=== PATIENT | female | born 1935 | race Caucasian/White ===

== ENCOUNTER → 2016-11-30 | Outpatient (CLI) | payer MEDICARE, OTHER ==
[~2016-11-30] MED LIST: ALPR0.5T PO; ASPI-933 PO; CALC-80 PO; CALC-9 PO; CIPR-226 PO; CIPR250S2 PO; CLN.1T PO; CLON1TAB18 PO; CLOP75TA PO; CLOP75TA28 PO; CPR500T PO; CRAN200C PO; DOXY100C2 PO; FOLI0.4T2 PO; FOLI1TAB24 PO; HYDR12.56 PO; LACT1CAP62 PO; LISI40TA PO; METH2.5T PO; METH5TAB PO; METO100T5 PO; METO50TA7 PO; MTP100TCR PO; MTR250T PO; MTX2.5T PO; MULT-305 PO; MULT-974 PO; OSLT75C PO; SIMV40TA4 PO; SMV20T PO; TERI202.4P SQ; VALS1TAB78 PO
--- OUTSIDE RECORDS SUMMARY | 2016-11-30 08:55 | XMS REPORT | Continuity of Care Document ---
Author Author [facility] Organization [facility] Address Unknown Phone Unavailable Care Team Providers Care Digital Print Operator Name Role Phone Ivon Harvey PCP [phone] Source Comments Some departments are not documenting in the electronic medical record. If you do not see the information that you expected, contact Release of Information in the Health Information Management department at [phone] for further assistance in locating additional records.[facility] Active Allergies and Adverse Reactions Allergen Noted Date Severity Reactions Comments Codeine 06/16/2015 Medium HIVES Current Medications Prescription Sig. Disp. Refills Start End Date Status Date metoprolol XL (TOPROL XL) Take 50 mg by mouth Active 100 mg tablet daily. simvastatin (ZOCOR) 40 mg Take 40 mg by mouth every Active tablet 48 hours. methotrexate 10 mg tablet Take 10 mg by mouth every Active 7 days. valsartan/hydrochlorothia Take by mouth daily. Active zide (DIOVAN HCT) 320/12.5 mg tablet folic acid (FOLVITE) 1 mg Take 1 mg by mouth daily. Active tablet clopiDOGrel (PLAVIX) 75 Take 75 mg by mouth every Active mg tablet 48 hours. MULTIVITAMINS WITH Take by mouth. 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 06/16/2015 Social History Tobacco Use Types Packs/Day Years Used Date Never Smoker Smokeless Tobacco: Never Used Last Filed Vital Signs Vital Sign Reading Time Taken Blood Pressure 199/105 06/21/2016 12:42 PM CDT Pulse 62 06/21/2016 12:42 PM CDT Temperature - - Respiratory Rate - - Height 1.6 m (5' 2.99") 06/21/2016 12:42 PM CDT Weight 68.04 kg (150 lb) 06/21/2016 12:42 PM CDT Body Mass Index 26.58 06/21/2016 12:42 PM CDT Oxygen Saturation - - Plan of Care Date Type Specialty Providers Description 12/26/2016 Appointment Ophthalmology Markell Lowery MD [address] [place] [address] [phone] (Fax) Health Maintenance Due Date Last Done Comments Physical (Comprehensive) 1942 Exam Pertussis Vaccine 1944 Tetanus Vaccine 1950 Shingles Vaccine 1993 Osteoporosis Screening 1998 Prevnar/Pneumovax (#1) 1998 Influenza Vaccine 06/22/2016 Results from Last 3 Months Not on file
--- NOTE | 2016-12-01 12:23 | Diagnostic Imaging Report ---
EXAM: Ultrasound of the abdominal aorta. INDICATION: AAA. COMPARISON: 08/31/16. FINDINGS: There is a distal abdominal aortic aneurysm with caliber measuring 3.1 x 3.7 cm. This is similar to the previous study. The right common iliac artery is ectatic at 1.6 cm. The left pulmonary artery is obscured by bowel gas. IMPRESSION: There is a 3.7 cm abdominal aortic aneurysm. Dictated by: Dictated on workstation # [id number]
== END ==
LOC: RAD 08:51
PROVIDERS: ATTEND Nurse Practitioner Family
DX: I71.4 Abdominal aortic aneurysm, without rupture (principal)
CPT/HCPCS: 76775

== ENCOUNTER → 2017-07-05 | Outpatient (CLI) | payer MEDICARE, OTHER ==
--- NOTE | 2017-07-05 09:32 | Diagnostic Imaging Report ---
Ultrasound of the aorta. INDICATION: Abdominal aortic aneurysm. COMPARISON: 12/01/2016. FINDINGS: The proximal aorta diameter is 2.0 cm and at midportion is 2.2 cm with prominent atherosclerotic plaque seen. The distal abdominal aorta caliber is up to 4.2 cm in size. This appears to be increased when compared to prior measurement of 3.7 cm. IMPRESSION: Suggestion of increase in size of the distal abdominal aortic aneurysm up to 4.2 cm compared to 3.7 cm on the previous exam performed seven months ago. Consider CTA or CT without contrast if there is renal dysfunction for more accurate measurements. Report was stat faxed to office of Dr. Tiara Miller @ 9:31 AM/wendy. Dictated by: Dictated on workstation # [id number]
== END ==
LOC: RAD 07:35
PROVIDERS: ATTEND Internal Medicine Cardiovascular Disease
DX: I71.4 Abdominal aortic aneurysm, without rupture (principal)
CPT/HCPCS: 76775

== ENCOUNTER → 2017-07-10 | Outpatient (CLI) | payer MEDICARE, OTHER ==
[~2017-07-10] MED LIST changes: +IOHEXOL 350 MG/ML 150 ML (OMNIPAQUE 350) VIAL IV ONE; +NS 100 ML (IVPB) BAG IV ONE
[2017-07-10 08:06] LABS: CALCIUM 9.8 MG/DL (8.5-10.1); CREATININE SERUM 0.96 MG/DL (0.60-1.30); POTASSIUM 3.8 MMOL/L (3.6-5.0)
--- NOTE | 2017-07-10 15:17 | Diagnostic Imaging Report ---
EXAMINATION: CT angiogram of the abdomen and pelvis with bilateral lower extremity runoff. INDICATION: Abdominal aortic aneurysm followup. FINDINGS: Soft tissue findings in the abdomen and pelvis demonstrate no significant consolidation in the lung bases. The liver, gallbladder, spleen, pancreas and adrenals appear unremarkable. The kidneys have symmetric contrast enhancement without hydronephrosis. There is diverticulosis with no diverticulitis. No significant free fluid or fluid collection in the abdomen or pelvis. CTA ABDOMEN AND PELVIS: There is an infrarenal abdominal aortic aneurysm with maximum caliber of 4.1 cm compared to 3.[address] of 11/27/2014. There is prominent atherosclerotic plaque seen with no high-grade stenosis in the aorta however. The celiac trunk demonstrates proximal high-grade stenosis. The SMA is patent. The renal arteries demonstrate atherosclerotic plaque with mild stenosis proximally on the right side and moderate stenosis on the left. The [place] origin appears to be occluded. In the pelvis, there is mild stenosis at the origin of the right common iliac artery. Diffuse mild to moderate disease in the common iliac and internal iliac arteries on the right are seen. Mild to moderate disease in the proximal aspect of the right external iliac artery is noted. Diffuse mild to moderate disease in the left common iliac artery is noted. There is suggestion of occlusion at the origin of the left internal iliac artery. The left external iliac artery appears patent. RIGHT LOWER EXTREMITY CTA: There is mild disease in the right common femoral artery. The profunda femoris is patent. The right SFA demonstrate mild to moderate disease from a noncalcified plaque in the proximal to mid right SFA and mild disease in the distal right SFA. The right popliteal artery mid section demonstrate significant artifacts from knee replacement obscuring this artery. The proximal and distal ends of the artery however appear patent. The anterior tibial artery appears patent to the foot. The posterior tibial artery is occluded proximally. The peroneal artery is patent to the ankle with collaterals reconstituting the posterior tibial artery in the foot. LEFT LOWER EXTREMITY CTA: There is mild disease in the left BACTERIOLOGY RESEARCH ASSISTANT. The profunda femoris artery is patent. The SFA demonstrate mild disease. The popliteal artery proximal and distal segments are patent. The mid segment is obscured by beam hardening artifacts from knee replacement. The anterior tibial artery is patent to the foot. The tibioperoneal trunk demonstrate distal moderate stenosis. The posterior tibial artery is small in caliber but appears patent to the foot. The peroneal artery is patent to the ankle. IMPRESSION: 1. A 4.1 cm infrarenal AAA increased in caliber from 3.5 cm on 11/27/2014 exam. 2. Generally mild disease in the aortoiliac and femoropopliteal segments bilaterally. The mid popliteal artery is obscured by beam hardening artifacts on both sides. 3. 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 Dictated by: Dictated on workstation # [id number]
== END ==
LOC: RAD 07:10
PROVIDERS: ATTEND Nurse Practitioner Family
DX: I71.4 Abdominal aortic aneurysm, without rupture (principal); I70.92 Chronic total occlusion of artery of the extremities
CPT/HCPCS: 36415; 75635; 80048

== ENCOUNTER 2018-06-20 06:33 | Emergency (ER) | payer MEDICARE, OTHER ==
[~2018-06-20] VITALS: Ht 162.6 cm; Wt 70.5 kg
[~2018-06-20 06:33] MED LIST changes: -IOHEXOL 350 MG/ML 150 ML (OMNIPAQUE 350) VIAL IV ONE; -NS 100 ML (IVPB) BAG IV ONE
[2018-06-20] MEDS ORDERED: NF-VAL40T PO (06:47)
[2018-06-20 07:04] LABS: BASOPHILS % (AUTO) 0 % (0-10); EOSINOPHILS # (AUTO) 0.3 10^3/uL (0.0-0.3); EOSINOPHILS % (AUTO) 3 % (0-10); HEMATOCRIT 37 % (35-52); HEMOGLOBIN 12.8 G/DL (11.5-16.0); LYMPHOCYTES # (AUTO) 1.4 X 10^3 (1.0-4.0); LYMPHOCYTES % (AUTO) 11 % (12-44); MEAN CORPUSCULAR HEMOGLOBIN 33 PG (25-34); MEAN CORPUSCULAR HGB CONC 35 G/DL (32-36); MEAN CORPUSCULAR VOLUME 95 FL (80-99); MEAN PLATELET VOLUME 9.2 FL (7.4-10.4); MONOCYTES # (AUTO) 1.5 X 10^3 (0.0-1.0); MONOCYTES % (AUTO) 12 % (0-12); NEUTROPHILS # (AUTO) 8.7 X 10^3 (1.8-7.8); NEUTROPHILS % (AUTO) 74 % (42-75); PLATELET COUNT 298 10^3/uL (130-400); RED BLOOD COUNT 3.88 10^6/uL (4.35-5.85); RED CELL DISTRIBUTION WIDTH 14.9 % (10.0-14.5); WHITE BLOOD COUNT 11.8 10^3/uL (4.3-11.0)
--- NOTE | 2018-06-20 07:05 | ED Abdominal Pain ---
General Chief Complaint: Abdominal/GI Problems Stated Complaint: ABD PAIN Nursing Triage Note: lower abdominal pressure Sepsis Screen: No Definite Risk Source of Information: Patient, Family, Old Records Exam Limitations: No Limitations History of Present Illness Date Seen by Provider: Jun 20, 2018 Time Seen by Provider: 06:35 Initial Comments This 82-year-old woman presents to the emergency room with complaints of lower abdominal pressure and discomfort for couple of days. She states she hasn't felt well for maybe 3 or 4 days. She denies any nausea, vomiting, or diarrhea. She does sometimes have constipation. However, she had a normal bowel movement yesterday. She denies any fever. She also has an abdominal aortic aneurysm which she is concerned about. She is notably hypertensive on arrival. She took her blood pressure medications this morning before coming to the ER. She has tenderness in the left lower quadrant. Allergies and Home Medications Allergies Coded Allergies: codeine (Verified Allergy, Unknown, 10/29/07) Home Medications Aspirin 81 Mg Tablet.dr, 81 MG PO DAILY, (Reported) Calcium Carbonate/Vitamin D3 1 Each Tablet, 1 TAB PO DAILY, (Reported) Cephalexin 500 Mg Capsule, 500 MG PO QID Prescribed by: SAMUEL SHEEHAN on 06/20/18 0938 Clopidogrel Bisulfate 75 Mg Tablet, 75 MG PO EVERY OTHER DAY, (Reported) Methotrexate Sodium 2.5 Mg Tablet, 12.5 MG PO WED, (Reported) TAKES 5 (2.5MG) TABLETS Metoprolol Succinate 100 Mg Tab.sr.24h, 100 MG PO BID, (Reported) Multivitamin 1 Each Tablet, 1 TAB PO DAILY, (Reported) Simvastatin 40 Mg Tablet, 40 MG PO DAILY, (Reported) Valsartan 40 Mg Tab, Unknown Dose PO DAILY, (Reported) Valsartan/Hydrochlorothiazide 1 Each Tablet, 1 TAB PO DAILY, (Reported) Patient Home Medication List Home Medication List Reviewed: Yes Review of Systems Review of Systems Constitutional: no symptoms reported EENTM: No Symptoms Reported Respiratory: No Symptoms Reported Cardiovascular: See HPI Gastrointestinal: See HPI Genitourinary: No Symptoms Reported Musculoskeletal: no symptoms reported Skin: no symptoms reported Psychiatric/Neurological: No Symptoms Reported Endocrine: No Symptoms Reported Past Cxlinfd-Twtjmr-Clzdmw Hx Past Med/Social Hx: Reviewed and Corrections made Patient Social History Alcohol Use: Denies Use Recreational Drug Use: No Smoking Status: Former Smoker Former Smoker, Quit: Aug 02, 1986 2nd Hand Smoke Exposure: No Recent Foreign Travel: No Contact w/Someone Who Travel: No Recent Infectious Disease Expo: No Recent Hopitalizations: No Immunizations Up To Date Tetanus Booster (TDap): More than 5yrs PED Vaccines UTD: No Date of Pneumonia Vaccine: Aug 22, 2010 Seasonal Allergies Seasonal Allergies: No Past Medical History Surgeries: Yes (hysterectomy, BILAT knee replacement/STENT) Coronary Stent, Hysterectomy, Orthopedic, Vascular Surgery Respiratory: No Cardiac: Yes (CEA NOV 2010, STENT, CARODID CLEAN OUT) Aneurysm (abdominal aortic aneurysm), Coronary Artery Disease, High Cholesterol , Hypertension, Peripheral Vascular Neurological: Yes (guillain-graves syndrome ) TIA : No Reproductive Disorders: No Female Reproductive Disorders: Denies Sexually Transmitted Disease: No HIV/AIDS: No Genitourinary: No UTI-Chronic Gastrointestinal: Yes Diverticulosis Musculoskeletal: Yes (SYATICA) Arthritis, Rheumatoid Arthritis Endocrine: No Cataract Loss of Vision: Denies Hearing Impairment: Hard of Hearing Cancer: No Psychosocial: No Integumentary: No Blood Disorders: No Adverse Reaction/Blood Tranf: No Family Medical History Reviewed Nursing Family Hx Aortic aneurysm 17 FATHER Physical Exam Vital Signs Vital Signs - First Documented 06/20/18 06:40 Temp 98.5 Pulse 74 Resp 18 B/P (MAP) 203/100 (134) Pulse Ox 95 O2 Delivery Room Air Capillary Refill : Less Than 3 Seconds Height/Weight/BMI Height: 5'4" Weight: 155lbs. 8.0oz. 70.826075fh; 25.74 BMI Method:Stated General Appearance: WD/WN, no apparent distress HEENT: PERRL/EOMI, normal ENT inspection, other (mucous membranes moist) Neck: normal inspection Respiratory: lungs clear, normal breath sounds, no respiratory distress, no accessory muscle use Cardiovascular: regular rate, rhythm, no edema, no murmur Gastrointestinal: normal bowel sounds, non tender, soft Extremities: normal inspection, no pedal edema Neurologic/Psychiatric: reception centre manager II-XII nml as tested, no motor/sensory deficits, alert, normal mood/affect, oriented x 3 Skin: normal color, warm/dry Progress/Results/Core Measures Results/Orders Lab Results Laboratory Tests Test 06/20/18 06:55 06/20/18 07:34 Range/Units White Blood Count 11.8 H 4.3-11.0 10^3/uL Red Blood Count 3.88 L 4.35-5.85 10^6/uL Hemoglobin 12.8 11.5-16.0 G/DL Hematocrit 37 35-52 % Mean Corpuscular Volume 95 80-99 FL Mean Corpuscular Hemoglobin 33 25-34 PG Mean Corpuscular Hemoglobin Concent 35 32-36 G/DL Red Cell Distribution Width 14.9 H 10.0-14.5 % Platelet Count 298 130-400 10^3/uL Mean Platelet Volume 9.2 7.4-10.4 FL Neutrophils (%) (Auto) 74 42-75 % Lymphocytes (%) (Auto) 11 L 12-44 % Monocytes (%) (Auto) 12 0-12 % Eosinophils (%) (Auto) 3 0-10 % Basophils (%) (Auto) 0 0-10 % Neutrophils # (Auto) 8.7 H 1.8-7.8 X 10^3 Lymphocytes # (Auto) 1.4 1.0-4.0 X 10^3 Monocytes # (Auto) 1.5 H 0.0-1.0 X 10^3 Eosinophils # (Auto) 0.3 0.0-0.3 10^3/uL Basophils # (Auto) 0.0 0.0-0.1 10^3/uL Sodium Level 138 135-145 MMOL/L Potassium Level 3.9 3.6-5.0 MMOL/L Chloride Level 102 98-107 MMOL/L Carbon Dioxide Level 24 21-32 MMOL/L Anion Gap 12 5-14 MMOL/L Blood Urea Nitrogen 17 7-18 MG/DL Creatinine 1.05 0.60-1.30 MG/DL Estimat Glomerular Filtration Rate 50 BUN/Creatinine Ratio 16 Glucose Level 110 H 70-105 MG/DL Calcium Level 9.9 8.5-10.1 MG/DL Corrected Calcium 9.9 8.5-10.1 MG/DL Total Bilirubin 0.6 0.1-1.0 MG/DL Aspartate Amino Transf (AST/SGOT) 31 5-34 U/L Alanine Aminotransferase (ALT/SGPT) 18 0-55 U/L Alkaline Phosphatase 62 40-136 U/L C-Reactive Protein High Sensitivity 0.67 H 0.00-0.50 MG/DL Total Protein 7.0 6.4-8.2 GM/DL Albumin 4.0 3.2-4.5 GM/DL Lipase 36 8-78 U/L Urine Color YELLOW Urine Clarity CLEAR Urine pH 7 5-9 Urine Specific [place] 1.005 L 1.016-1.022 Urine Protein NEGATIVE NEGATIVE Urine Glucose (UA) NEGATIVE NEGATIVE Urine Ketones NEGATIVE NEGATIVE Urine Nitrite NEGATIVE NEGATIVE Urine Bilirubin NEGATIVE NEGATIVE Urine Urobilinogen NORMAL NORMAL MG/DL Urine Leukocyte Esterase 1+ H NEGATIVE Urine RBC (Auto) NEGATIVE NEGATIVE Urine RBC NONE /HPF Urine WBC 5-10 H /HPF Urine Squamous Epithelial Cells 2-5 /HPF Urine Crystals NONE /LPF Urine Bacteria FEW H /HPF Urine Casts NONE /LPF Urine Mucus NEGATIVE /LPF Urine Culture Indicated YES Micro Results Microbiology 06/20/18 Urine Culture - Preliminary, Resulted Sent To [facility] My Orders Orders - SAMUEL MORE MD Cbc With Automated Diff (06/20/18 06:36) Comprehensive Metabolic Panel (06/20/18 06:36) Lipase (06/20/18 06:36) Ua Culture If Indicated (06/20/18 06:36) Saline Lock/Iv-Start (06/20/18 06:36) Hs C Reactive Protein (06/20/18 06:54) Ct Angio Abdomen/Pelv W (06/20/18 07:29) Labetalol Injection (Normodyne Injection (06/20/18 07:45) Iohexol Injection (Omnipaque 350 Mg/Ml 1 (06/20/18 07:45) Ns (Ivpb) (Sodium Chloride 0.9%) (06/20/18 07:45) Contrast Received (Contrast Received) (06/20/18 08:00) Urine Culture (06/20/18 07:34) Ceftriaxone For Iv Use (Rocephin For I (06/20/18 08:30) Medications Given in ED Vital Signs/I&O 06/20/18 06/20/18 06:40 09:52 Temp 98.5 100.7 Pulse 74 73 Resp 18 18 B/P (MAP) 203/100 (134) 162/95 Pulse Ox 95 98 O2 Delivery Room Air Blood Pressure Mean: 134 Progress Progress Note #1: Time: 07:05 Progress Note Patient seen and examined. Labs pending. Further workup will be determined after review of labs. Progress Note #2: Time: 07:34 Progress Note More than hour after taking blood pressure medications patient is still markedly hypertensive without any notable improvement. Labetalol has been ordered as good blood pressure control should be insured with abdominal aortic aneurysm. CT angiogram of the abdomen and pelvis was ordered after review of labs. UA is pending. Diagnostic Imaging Diagonstic Imaging: CT Plain Films/CT/US/NM/MRI: abdomen, pelvis Comments Angiogram of the abdomen and pelvis viewed by me and report reviewed. Discussed with the radiologist. There was an abnormality of the left kidney suspicious for pyelonephritis. However, other pathology cannot be ruled out. I discussed this with the patient and her family as well as Dr. HARVEY. Outpatient follow-up and a plan for monitoring needs to be developed. Patient did remain hypertensive but was trending toward improvement at the time of discharge. We discussed altering medications. Per Dr. Harvey, patient does have labile blood pressure and her blood pressure often responds to motion and stress. After discussing with Dr. Harvey and the patient, we elected to make no changes to her medications at this time. She will monitor her blood pressure at home and in the clinic and allow Dr. Harvey to make changes if it remains elevated. Urinary tract infection was suspected based on CT findings and urinalysis. An gram of Rocephin was administered. Departure Impression Primary Impression: Pyelonephritis Additional Impressions: Left sided abdominal pain Hypertensive urgency Abnormal CT of the abdomen Disposition: 01 HOME, SELF-CARE Condition: Improved Departure-Patient Inst. Decision time for Depature: 09:15 Referrals: KAROLINA HARVEY DO (PCP/Family) Primary Care Physician Patient Instructions: Urinary Tract Infection, Adult (DC) Add. Discharge Instructions: Follow-up with Dr. Harvey within the next week to evaluate blood pressure, urine culture, and CT report. Drink plenty of clear liquids. Complete your antibiotic as prescribed. You may take Tylenol and/or ibuprofen for pain. Return to emergency room if you have worsening symptoms. Monitor your blood pressure at home or in Dr. Harvey's office and discuss options with Dr. HARVEY. All discharge instructions reviewed with patient and/or family. Voiced understanding. Scripts Cephalexin (Keflex) 500 Mg Capsule 500 MG PO QID, #28 CAP Prov: SAMUEL MORE MD 06/20/18 Copy Copies To 1: KAROLINA HARVEY JOSHUA T MD Jun 20, 2018 07:04
[2018-06-20 07:24] LABS: BILIRUBIN,TOTAL 0.6 MG/DL (0.1-1.0); CALCIUM 9.9 MG/DL (8.5-10.1); CREATININE SERUM 1.05 MG/DL (0.60-1.30); POTASSIUM 3.9 MMOL/L (3.6-5.0)
[2018-06-20] MEDS: LABETALOL HCL 20 MG/4 ML VIAL IV ONE (07:47)
[2018-06-20] MEDS ORDERED: RECEIVED CONTRAST (Hold Metformin) IV SCH (08:00)
[2018-06-20] MEDS: IOHEXOL 350 MG/ML 100 ML (OMNIPAQUE 350) VIAL IV ONE (08:01)
[2018-06-20] MEDS: NS 250 ML (IVPB) BAG IV ONE (08:01)
[2018-06-20 08:02] LABS: BILIRUBIN,URINE NEGATIVE (NEGATIVE); CLARITY,URINE CLEAR; COLOR,URINE YELLOW; GLUCOSE, URINE (UA) NEGATIVE (NEGATIVE); KETONES,URINE NEGATIVE (NEGATIVE); LEUKOCYTE ESTERASE ,URINE 1+ (NEGATIVE); NITRITE,URINE NEGATIVE (NEGATIVE); PH,URINE 7 (5-9); PROTEIN,URINE NEGATIVE (NEGATIVE); UROBILINOGEN,URINE NORMAL (NORMAL)
[2018-06-20 08:11] LABS: BACTERIA,URINE FEW /HPF
[2018-06-20] MEDS: cefTRIAXone FOR IV USE 1,000 MG in NS (IVPB) 50 ML IV ONE (08:36)
--- NOTE | 2018-06-20 08:43 | Diagnostic Imaging Report ---
INDICATION: Low abdominal pain, bloating and history of aneurysm. Surgical history includes hysterectomy. Comparison made with prior examination from 07/10/2017. FINDINGS: There is minimal scarring in the lung bases. Heart size is normal. The liver is normal in size without focal lesions. Gallbladder is unremarkable. There is no biliary ductal dilatation. Spleen is normal. Pancreas and adrenal glands are unremarkable. There appears to be a stable 3-4 mm nonobstructing stone in the right kidney. Right kidney is otherwise normal in appearance. There is a focal abnormal area of contrast enhancement in the lateral aspect of the mid left kidney. There are surrounding inflammatory changes. This is most suspect for focal pyelonephritis although neoplasm cannot be entirely excluded. Stable infrarenal abdominal aortic aneurysm measuring roughly 4.1 x 3.5 cm. The bowel gas pattern is nonspecific. There is some diverticular disease of the colon without evidence of diverticulitis. Bladder is normal. 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 There is also severe degenerative disc disease at L5-S1. There is an age-indeterminate superior endplate deformity of T12 although I suspect this is chronic. IMPRESSION: Abnormal appearance of the left kidney. Again findings are most suspect for focal pyelonephritis although neoplasm cannot be entirely excluded. Recommend clinical correlation and followup imaging as warranted. Stable 4 mm nonobstructing right renal calculus. Stable infrarenal abdominal aortic aneurysm measuring 4.1 x 3.5 cm. Diverticular disease of the sigmoid colon without evidence of diverticulitis. Degenerative changes in the spine as described. Dictated by: Dictated on workstation # [id number]
[2018-06-20] MEDS ORDERED: CEPH-507 PO (09:38)
[2018-06-20 09:52] VITALS: BP 162/95
== END 2018-06-20 09:47 | disposition home or self-care (01) ==
LOC: EDUNIT# 06:33 → ER 06:35
DX: N12 Tubulo-interstitial nephritis, not specified as acute or chronic (principal); I16.0 Hypertensive urgency; R93.5 Abnormal findings on diagnostic imaging of other abdominal regions, including retroperitoneum; R10.32 Left lower quadrant pain; I25.10 Atherosclerotic heart disease of native coronary artery without angina pectoris; E78.00 Pure hypercholesterolemia, unspecified; I10 Essential (primary) hypertension; I73.9 Peripheral vascular disease, unspecified; M06.9 Rheumatoid arthritis, unspecified; G61.0 Guillain-Barre syndrome; Z87.440 Personal history of urinary (tract) infections; Z86.73 Personal history of transient ischemic attack (TIA), and cerebral infarction without residual deficits; Z88.5 Allergy status to narcotic agent; Z79.82 Long term (current) use of aspirin; Z79.02 Long term (current) use of antithrombotics/antiplatelets; Z87.19 Personal history of other diseases of the digestive system; Z87.891 Personal history of nicotine dependence; Z90.710 Acquired absence of both cervix and uterus; Z96.653 Presence of artificial knee joint, bilateral; Z98.51 Tubal ligation status; Z95.5 Presence of coronary angioplasty implant and graft
CPT/HCPCS: 36415; 74174; 80053; 81000; 83690; 85025; 86141; 87077; 87088; 96365; 96375

== ENCOUNTER 2019-10-03 09:43 | Emergency (ER) | payer MEDICARE, OTHER ==
[~2019-10-03] VITALS: Ht 162 cm; Wt 63.6 kg
[~2019-10-03 09:43] MED LIST changes: +CEPH-507 PO; +NF-VAL40T PO
--- NOTE | 2019-10-03 11:21 | ED Fall/Injury ---
General Chief Complaint: Trauma-Non Activation Stated Complaint: FELL Nursing Triage Note: ARRIVED VIA WC TO ROOM 06. COMPLAINS OF LEFT UPPER THIGH PAIN AFTER FALLING IN KITCHEN. DENIES DIZZINESS WITH FALL ET STATES SHE JUST STARTED FALLING BACKWARDS AND COULD NOT STOP. STATES SHE HIT HER HEAD WHEN SHE FELL. DENIES LOC OR NECK PAIN. USES A WALKER AT HOME. Source: patient Exam Limitations: no limitations History of Present Illness Date Seen by Provider: Oct 03, 2019 Time Seen by Provider: 10:28 Initial Comments Here with report of left hip pain after fall in the kitchen yesterday. States that she had been over to do something on a cookie sheet and when she stood up she lost her balance and fell backwards, landing first on her left hip and then on her head. No loss of consciousness. She is able to walk afterwards. This morning she noted that it was much worse with respect to pain on the left hip but she is still able to walk with assistance. She does use a walker at home. Daughter is very concerned about head injury and hip fracture. Denies other injury or concerns. Occurred: yesterday Severity: moderate Injuries/Pain Location: head, pelvis, lower extremity Context: lost balance Loss of Consciousness: no loss of consciousness Associated Symptoms (Fall): No Abdominal Pain, No Confusion; Headache; No Muscle Spasms, No Neck Pain, No Shortness of Air; Trouble Walking Allergies and Home Medications Allergies Coded Allergies: codeine (Verified Allergy, Unknown, 10/29/07) Home Medications Aspirin 81 Mg Tablet.dr, 81 MG PO DAILY, (Reported) Calcium Carbonate/Vitamin D3 1 Each Tablet, 1 TAB PO DAILY, (Reported) Cephalexin 500 Mg Capsule, 500 MG PO QID Prescribed by: SAMUEL SHEEHAN on 06/20/18 0938 Clopidogrel Bisulfate 75 Mg Tablet, 75 MG PO EVERY OTHER DAY, (Reported) Methotrexate Sodium 2.5 Mg Tablet, 12.5 MG PO WED, (Reported) TAKES 5 (2.5MG) TABLETS Metoprolol Succinate 100 Mg Tab.sr.24h, 100 MG PO BID, (Reported) Multivitamin 1 Each Tablet, 1 TAB PO DAILY, (Reported) Simvastatin 40 Mg Tablet, 40 MG PO DAILY, (Reported) Valsartan 40 Mg Tab, Unknown Dose PO DAILY, (Reported) Valsartan/Hydrochlorothiazide 1 Each Tablet, 1 TAB PO DAILY, (Reported) Patient Home Medication List Home Medication List Reviewed: Yes Review of Systems Review of Systems Constitutional: see HPI; No chills, No fever Ears, Nose, Mouth, Throat: no symptoms reported Respiratory: no symptoms reported Cardiovascular: no symptoms reported Gastrointestinal: no symptoms reported Genitourinary: no symptoms reported Musculoskeletal: joint pain, muscle pain Skin: change in color; No lesions Psychiatric/Neurological: Headache; Denies Weakness Past Ltgugke-Hrpmhf-Jplhdq Hx Past Med/Social Hx: Reviewed Nursing Past Med/Soc Hx Patient Social History Alcohol Use: Denies Use Recreational Drug Use: No Smoking Status: Former Smoker Former Smoker, Quit: Aug 02, 1986 2nd Hand Smoke Exposure: No Recent Foreign Travel: No Contact w/Someone Who Travel: No Recent Infectious Disease Expo: No Recent Hopitalizations: No Immunizations Up To Date Tetanus Booster (TDap): More than 5yrs PED Vaccines UTD: No Date of Pneumonia Vaccine: Aug 22, 2010 Seasonal Allergies Seasonal Allergies: No Past Medical History Surgeries: Yes (hysterectomy, BILAT knee replacement/STENT) Coronary Stent, Hysterectomy, Orthopedic, Vascular Surgery Respiratory: No Cardiac: Yes (CEA NOV 2010, STENT, CARODID CLEAN OUT) Aneurysm, Coronary Artery Disease, High Cholesterol, Hypertension, Peripheral Vascular Neurological: Yes (guillain-graves syndrome ) TIA Reproductive Disorders: No Female Reproductive Disorders: Denies Sexually Transmitted Disease: No HIV/AIDS: No Genitourinary: No UTI-Chronic Gastrointestinal: Yes Diverticulosis Musculoskeletal: Yes (SYATICA) Arthritis, Rheumatoid Arthritis Endocrine: No Cataract Loss of Vision: Denies Hearing Impairment: Hard of Hearing Cancer: No Psychosocial: No Integumentary: No Blood Disorders: No Adverse Reaction/Blood Tranf: No Family Medical History Reviewed Nursing Family Hx Aortic aneurysm 19 FATHER Physical Exam Vital Signs Vital Signs - First Documented 10/03/19 09:45 Temp 36.8 Pulse 65 Resp 16 B/P (MAP) 223/92 (135) Pulse Ox 96 O2 Delivery Room Air Capillary Refill : Less Than 3 Seconds Height, Weight, BMI Height: 5'4" Weight: 155lbs. 8.0oz. 70.745396op; 24.00 BMI Method:Stated General Appearance: WD/WN, no apparent distress HEENT: PERRL/EOMI, pharynx normal, other (nontender on the head and scalp) Neck: non-tender, full range of motion, supple, normal inspection Cardiovascular: regular rate, rhythm, no murmur Respiratory: lungs clear, normal breath sounds Gastrointestinal: non tender, soft Extremities: pelvis stable, other (tender to the area of the left hip lateral aspect. Question small bruise there.) Neurologic/Psychiatric: alert, oriented x 3 Skin: warm/dry, ecchymosis Vincent Coma Score Best Eye Response: (4) Open Spontaneously Best Verbal Response: (5) Oriented Best Motor Response: (6) Obeys Commands Progress/Results/Core Measures Results/Orders My Orders Orders - ÁNGEL GIL MD Pelvis With Left Hip 2-3 Views (10/03/19 10:45) Ct Head Wo (10/03/19 10:45) Vital Signs/I&O 10/03/19 09:45 Temp 36.8 Pulse 65 Resp 16 B/P (MAP) 223/92 (135) Pulse Ox 96 O2 Delivery Room Air Blood Pressure Mean: 135 POS Progress Progress Note : Progress Note Seen and evaluated. CT head ordered. Patient is on blood thinners. X-ray of the pelvis and left hip ordered. I did discuss at length with the patient and her daughter regarding potential for home physical therapy including strength and balance training as well as evaluation for fall hazards. Both stated their amiable to that and the patient stated that she definitely would consider it. 1110: I did discuss the case with Dr. Harvey and she will discuss with the patient as well and try to get her set up for that. Dr. Harvey is trying to do this in the past with the patient has refused but maybe this time she will go ahead and do it. Monitor patient. 1212: Etiology results noted. Discussed with patient and family. No acute findings. Discharged home with return precautions. Patient and family verbalize understanding instructions and agreement with plan. Patient states that she is amiable to physical therapy and home health evaluation. I will send a copy of the chart to Dr. Harvey. Diagnostic Imaging Diagonstic Imaging: CT Plain Films/CT/US/NM/MRI: head Comments [facility]. POS [place], [place] POS NAME: FORREST MORA [facility] REC#: [id number] PT STATUS: REG ER : 1935 PHYSICIAN: ÁNGEL GIL MD ADMIT DATE: 10/03/19/ER Signed POSDate of Exam:10/03/19 CT HEAD WO PROCEDURE: CT head without contrast. TECHNIQUE: Multiple contiguous axial images were obtained through the brain without the use of intravenous contrast. Auto Exposure Controls were utilized during the CT exam to meet ALARA standards for radiation dose reduction. INDICATION: Fall with head injury. COMPARISON: Comparison is made to study of 08/12/2016. FINDINGS: Ventricles and sulci are prominent diffusely. Low density is seen throughout the deep white matter of both hemispheres. Volume loss in the left cerebellar hemisphere is again noted and is compatible with encephalomalacia from previous infarction. There is no CT evidence of acute infarct. Calvarium is intact and the visualized paranasal sinuses are clear. IMPRESSION: Old left cerebellar hemispheric infarct without CT evidence of acute intracranial abnormality. Dictated by: Dictated on workstation # [id number] Dict: 10/03/19 1117 Trans: 10/03/19 1140 [facility] [id number] Interpreted by: ROMULO CISNEROS MD Electronically signed by: ROMULO CISNEROS MD 10/03/19 1140 Diagonstic Imaging: Xray Plain Films/CT/US/NM/MRI: pelvis, hip Comments [facility]. POS [place], [place] POS NAME: FORREST MORA [facility] REC#: [id number] PT STATUS: REG ER : 1935 PHYSICIAN: ÁNGEL GIL MD ADMIT DATE: 10/03/19/ER Signed POSDate of Exam:10/03/19 PELVIS WITH LEFT HIP 2-3 VIEWS INDICATION: Fall, pain. COMPARISON: CT dated 06/20/2018. TECHNIQUE: 3 radiographs of the pelvis and left hip dated 10/03/2019. FINDINGS: Rounded peripherally calcified structure measuring near 5 cm is present within the left abdomen, felt to relate to a peripherally calcified aneurysm sac. No acute fracture or dislocation. No destructive osseous process. The bilateral sacroiliac joints are intact. Mild degenerative changes in bilateral hips. The left femoral head maintains its normal shape and contour. IMPRESSION: No acute osseous abnormality with mild degenerative changes. Peripherally calcified abdominal aortic aneurysm is incidentally noted. Dictated by: Dictated on workstation # [id number] Dict: 10/03/19 1123 Trans: 10/03/19 1158 [id number] Interpreted by: OLI KINNEY MD Electronically signed by: OLI KINNEY MD 10/03/19 1158 Departure Impression Primary Impression: Contusion of left hip Qualified Codes: S70.02XA - Contusion of left hip, initial encounter Additional Impression: Minor closed head injury Disposition: HOME, SELF-CARE Condition: Improved Departure-Patient Inst. Decision time for Depature: 12:13 Referrals: KAROLINA HARVEY DO (PCP/Family) Primary Care Physician Patient Instructions: Contusion (DC), Minor Head Injury, Preventing Falls in the Older Adult Add. Discharge Instructions: All discharge instructions reviewed with patient and/or family. Voiced understanding. Follow-up with Dr. Harvey for recheck and further evaluation and to discuss physical therapy and home health assessment. Call her office on Sunday morning for appointment. Continue home medications as previously prescribed. Return for worse pain, fever, vomiting, weakness, breathing problems or other concerns as needed. Copy Copies To 1: KAROLINA HARVEY TIMOTHY D MD Oct 03, 2019 11:21 POS
--- NOTE | 2019-10-03 11:31 | Diagnostic Imaging Report ---
INDICATION: Fall, pain. COMPARISON: CT dated 06/20/2018. TECHNIQUE: 3 radiographs of the pelvis and left hip dated 10/03/2019. FINDINGS: Rounded peripherally calcified structure measuring near 5 cm is present within the left abdomen, felt to relate to a peripherally calcified aneurysm sac. No acute fracture or dislocation. No destructive osseous process. The bilateral sacroiliac joints are intact. Mild degenerative changes in bilateral hips. The left femoral head maintains its normal shape and contour. IMPRESSION: No acute osseous abnormality with mild degenerative changes. Peripherally calcified abdominal aortic aneurysm is incidentally noted. Dictated by: Dictated on workstation # [id number]
--- NOTE | 2019-10-03 11:50 | NUR ---
RESTING IN BED. NOTIFIED HER THAT HER X-RAYS WERE BACK ARE WAITING ON DR TO COME SEE HER. DENIES NEEDS AT THIS TIME.
[2019-10-03 12:50] VITALS: BP 201/104
== END 2019-10-03 12:50 | disposition home or self-care (01) ==
LOC: EDUNIT# 09:43 → ER 09:44
DX: S09.90XA Unspecified injury of head, initial encounter (principal); S70.02XA Contusion of left hip, initial encounter; I10 Essential (primary) hypertension; E78.00 Pure hypercholesterolemia, unspecified; I25.10 Atherosclerotic heart disease of native coronary artery without angina pectoris; M06.9 Rheumatoid arthritis, unspecified; Z86.73 Personal history of transient ischemic attack (TIA), and cerebral infarction without residual deficits; Z87.440 Personal history of urinary (tract) infections; Z90.710 Acquired absence of both cervix and uterus; Z95.5 Presence of coronary angioplasty implant and graft; Z87.891 Personal history of nicotine dependence; Z88.5 Allergy status to narcotic agent; Z79.82 Long term (current) use of aspirin; Z96.653 Presence of artificial knee joint, bilateral; Z79.02 Long term (current) use of antithrombotics/antiplatelets; W18.39XA Other fall on same level, initial encounter; Y92.000 Kitchen of unspecified non-institutional (private) residence as the place of occurrence of the external cause
CPT/HCPCS: 70450

== ENCOUNTER 2021-08-05 09:17 | Emergency (ER) | payer MEDICARE, OTHER ==
[~2021-08-05] VITALS: Ht 162 cm; Wt 53.5 kg
[2021-08-05 10:10] LABS: INR 1.1 (0.8-1.4); PROTHROMBIN TIME PATIENT 14.2 SEC (12.2-14.7)
--- NOTE | 2021-08-05 10:15 | Diagnostic Imaging Report ---
INDICATION: Fall, pelvic pain. COMPARISON: 10/03/2019. FINDINGS: Single view of the pelvis demonstrates stable calcifications adjacent to the lumbar spine. No pelvic fracture identified. Degenerative joint disease is present. There is no osseous lesion. IMPRESSION: No fracture or dislocation. Dictated by: Dictated on workstation # [id number]
--- NOTE | 2021-08-05 10:16 | Diagnostic Imaging Report ---
INDICATION: Chest trauma. COMPARISON: None. FINDINGS: Single view of the chest demonstrates chronic interstitial changes. The heart is slightly enlarged. There is no pneumothorax or effusion. Visualized osseous structures are unremarkable. IMPRESSION: No acute cardiopulmonary findings. Dictated by: Dictated on workstation # [id number]
[2021-08-05 10:17] LABS: ALBUMIN 3.7 GM/DL (3.2-4.5); BILIRUBIN,TOTAL 0.5 MG/DL (0.1-1.0); CALCIUM 10.2 MG/DL (8.5-10.1); CREATININE SERUM 1.19 MG/DL (0.60-1.30); MAGNESIUM 2.1 MG/DL (1.6-2.4); POTASSIUM 4.2 MMOL/L (3.6-5.0); TOTAL PROTEIN 7.6 GM/DL (6.4-8.2)
[2021-08-05 10:46] LABS: BASOPHILS # (AUTO) 0.1 10^3/uL (0.0-0.1); BASOPHILS % (AUTO) 1 % (0-10); EOSINOPHILS # (AUTO) 0.7 10^3/uL (0.0-0.3); EOSINOPHILS % (AUTO) 8 % (0-10); HEMATOCRIT 37 % (35-52); LYMPHOCYTES # (AUTO) 1.3 10^3/uL (1.0-4.0); LYMPHOCYTES % (AUTO) 15 % (12-44); MEAN CORPUSCULAR HEMOGLOBIN 32 pg (25-34); MEAN CORPUSCULAR HGB CONC 33 g/dL (32-36); MEAN CORPUSCULAR VOLUME 99 fL (80-99); MEAN PLATELET VOLUME 9.6 fL (9.0-12.2); MONOCYTES # (AUTO) 1.5 10^3/uL (0.0-1.0); MONOCYTES % (AUTO) 18 % (0-12); NEUTROPHILS # (AUTO) 4.8 10^3/uL (1.8-7.8); NEUTROPHILS % (AUTO) 57 % (42-75); PLATELET COUNT 372 10^3/uL (130-400); WHITE BLOOD COUNT 8.4 10^3/uL (4.3-11.0)
--- NOTE | 2021-08-05 10:51 | Diagnostic Imaging Report ---
PROCEDURE: CT head, face, and cervical spine without contrast. TECHNIQUE: Multiple contiguous axial images were obtained through the head, neck, and facial bones without the use of intravenous contrast. Sagittal and coronal reformations through the cervical spine and facial bones were also performed. Auto Exposure Controls were utilized during the CT exam to meet ALARA standards for radiation dose reduction. INDICATION: Fall, head and neck injury. COMPARISON: CT head from 10/03/2019. FINDINGS: CT HEAD: Chronic lacunar infarct is seen in the right basal ganglia. Age-related cerebral volume loss and chronic microvascular changes are present. There is no focus of acute ischemia or hemorrhage. There is no midline shift or mass effect. There is no skull fracture. Paranasal sinuses and mastoids are clear. IMPRESSION: No acute intracranial abnormalities. CT FACE: There is chronic deviation of the nasal septum. The orbits are symmetric. Paranasal sinuses are clear. No air-fluid levels are seen. The mandible and zygomatic arches are intact. No orbital wall fracture is seen. Nasal bone is well aligned. IMPRESSION: No facial fracture identified. CT CERVICAL SPINE: Chronic-appearing T2 and T3 superior endplate fractures are seen. There is no cervicothoracic malalignment. Advanced degenerative disc disease and facet joint arthropathy is seen. The cervical spine is otherwise intact. No osseous lesion. Soft tissues are grossly unremarkable. IMPRESSION: 1. No traumatic malalignment or fracture of the cervical spine. 2. Likely chronic T2-T3 superior endplate compression fractures. Dictated by: Dictated on workstation # [id number]
[2021-08-05 10:59] LABS: BILIRUBIN,URINE NEGATIVE (NEGATIVE); CLARITY,URINE CLEAR; COLOR,URINE YELLOW; GLUCOSE, URINE (UA) NEGATIVE (NEGATIVE); KETONES,URINE NEGATIVE (NEGATIVE); LEUKOCYTE ESTERASE ,URINE NEGATIVE (NEGATIVE); NITRITE,URINE NEGATIVE (NEGATIVE); PROTEIN,URINE NEGATIVE (NEGATIVE)
[2021-08-05 11:07] LABS: BACTERIA,URINE NEGATIVE /HPF; RBC,URINE RARE /HPF; WBC,URINE 0-2 /HPF
--- NOTE | 2021-08-05 11:30 | ED Fall/Injury ---
General Chief Complaint: Trauma-Non Activation Stated Complaint: FALL Nursing Triage Note: pt presents to ed via ems from home for complaints of a fall around 0400 this am whe trying to use her bedside commode. pt daughter reports pt put pt back in bed and they were both sleeping when pt daughter states she went to chek on them. Source: patient (PT IS POOR HISTORIAN--HAS DEMENTIA), family (DAUGHTER) History of Present Illness Date Seen by Provider: Aug 05, 2021 Time Seen by Provider: 09:20 Initial Comments PT ARRIVES VIA EMS FROM HOME PT FELL AROUND [id number] THIS AM-- DID NOT WITNESS IT, BUT IS BELIEVED THAT SHE HAD GOTTEN UP TO USE THE BEDSIDE COMMODE AND FELL. REPORTEDLY, PT'S PUT HER BACK IN BED, AND HE CALLED DAUGHTER AROUND 0600 WHEN SHE GOT TO THE HOUSE, BOTH PT AND WERE ASLEEP IN BED DAUGHTER REPORTS THAT PT IS AT NORMAL BASELINE IN MENTATION PT HAS SLIGHT BRUISE/RED AREA BELOW LEFT EYE,BUT DENIES PAIN IN THIS AREA. DID NOT BREAK GLASSES DENIES VISION CHANGES PT STATES SHE ALWAYS HURTS ALL OVER, BUT DENIES ANY NEW AREAS OF PAIN TODAY. PT WITH HISTORY OF FALLS PT IS ON PLAVIX WITH HISTORY OF ATRIAL FIBRILLATION AND CARDIAC STENTS DAUGHTER WANTED HER CHECKED OUT SHE ALSO STATES THAT PT SLID OFF THE COUCH ON Sunday07/30/21--NO APPARENT INJURY AND DID NOT SEEK TREATMENT Location Injury Occurred: home PCP: DR. JENNINGS CV SURGEON: DR. ORDOÑEZ Allergies and Home Medications Allergies Coded Allergies: codeine (Verified Allergy, Unknown, 10/29/07) Patient Home Medication List Home Medication List Reviewed: Yes Aspirin (Ecotrin) 81 Mg Tablet., 81 MG PO DAILY, (Reported) Entered as Reported by: MARY BRADLEY on 10/15/10 1020 Calcium Carbonate/Vitamin D3 (Calcium 600 + D Caplet) 1 Each Tablet, 1 TAB PO DAILY, (Reported) Entered as Reported by: BRETT MICHAEL on 11/27/14 1316 Cephalexin (Keflex) 500 Mg Capsule, 500 MG PO QID Prescribed by: SAMUEL SHEEHAN on 06/20/18 0938 Clopidogrel Bisulfate (Clopidogrel) 75 Mg Tablet, 75 MG PO EVERY OTHER DAY, (Reported) Entered as Reported by: BRETT MICHAEL on 11/27/14 1316 Methotrexate Sodium (Methotrexate) 2.5 Mg Tablet, 12.5 MG PO WED, (Reported) Entered as Reported by: BRETT MICHAEL on 11/27/14 131 Metoprolol Succinate (Metoprolol Succinate) 100 Mg Tab.sr.24h, 100 MG PO BID, (Reported) Entered as Reported by: BRETT MICHAEL on 11/27/141315 Multivitamin (Multi Vitamin Daily) 1 Each Tablet, 1 TAB PO DAILY, (Reported) Entered as Reported by: BRETT MICHAEL on 11/27/14 131 Simvastatin (Simvastatin) 40 Mg Tablet, 40 MG PO DAILY, (Reported) Entered as Reported by: BRETT MICHAEL on 11/27/14 131 Valsartan (Diovan) 40 Mg Tab, Unknown Dose PO DAILY, (Reported) Entered as Reported by: CINDI HUMPHRIES on 06/20/18 0647 Valsartan/Hydrochlorothiazide (Valsartan-Hctz 320-12.5 Mg Tab) 1 Each Tablet, 1 TAB PO DAILY, (Reported) Entered as Reported by: BRETT MICHAEL on 11/27/14 131 Review of Systems Review of Systems Constitutional: no symptoms reported Eyes: See HPI Ears, Nose, Mouth, Throat: no symptoms reported Respiratory: no symptoms reported Cardiovascular: no symptoms reported Gastrointestinal: no symptoms reported Genitourinary: no symptoms reported Musculoskeletal: see HPI Skin: other (PRESSURE SORES ON BUTTOCKS) Psychiatric/Neurological: No Symptoms Reported Past Rssnryz-Zeonya-Jsuhec Hx Patient Social History Tobacco Use?: No Smoking Status: Former Smoker Substance use?: No Alcohol Use?: No Pt feels they are or have been: No Immunizations Up To Date Tetanus Booster (TDap): More than 5yrs PED Vaccines UTD: No First/Initial COVID19 Vaccinat: no Second COVID19 Vaccination Prudencio: no Seasonal Allergies Seasonal Allergies: No Past Medical History Surgery/Hospitalization HX: pmh: dementia, pressure ulcers, uti,a fib, abdominal aneurysm, sx: cardiac stents, bilat knee replacements, hyst Surgeries: Yes (hysterectomy, BILAT knee replacement/STENT) Coronary Stent, Hysterectomy, Orthopedic, Vascular Surgery Respiratory: No Cardiac: Yes (CEA NOV 2010, STENT, CARODID CLEAN OUT) Aneurysm, Coronary Artery Disease, High Cholesterol, Hypertension, Peripheral Vascular Neurological: Yes (guillain-graves syndrome ) TIA Reproductive Disorders: No Female Reproductive Disorders: Denies Sexually Transmitted Disease: No HIV/AIDS: No Genitourinary: No UTI-Chronic Gastrointestinal: Yes Diverticulosis Musculoskeletal: Yes (SYATICA) Arthritis, Rheumatoid Arthritis Endocrine: No Cataract Loss of Vision: Denies Hearing Impairment: Hard of Hearing Cancer: No Psychosocial: No Integumentary: No Blood Disorders: No Adverse Reaction/Blood Tranf: No Family Medical History Aortic aneurysm 19 FATHER Physical Exam Vital Signs Vital Signs - First Documented Capillary Refill : Less Than 3 Seconds Height, Weight, BMI Height: 5'4" Weight: 155lbs. 8.0oz. [id number]; 20.00 BMI Method:Stated General Appearance: WD/WN, no apparent distress HEENT: PERRL/EOMI, other (MILD AREA OF BRUISING/ERYTHEMA BELOW LEFT EYE. NO SWELLING. GLASSES ARE INTACT. 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, no motor/sensory deficits, alert, normal mood/affect, other (ORIENTED TO PERSON, PLACE, GROSSLY ORIENTED TO SITUATION, BUT VERY POOR MEMORY AND IS EASILY CONFUSED) Skin: normal color, warm/dry Progress/Results/Core Measures Results/Orders Lab Results Laboratory Tests Test 08/05/21 09:49 08/05/21 10:37 08/05/21 10:55 Range/Units Prothrombin Time 14.2 12.2-14.7 SEC INR Comment 1.1 0.8-1.4 Activated Partial Thromboplast Time 31 24-35 SEC Sodium Level 138 135-145 MMOL/L Potassium Level 4.2 3.6-5.0 MMOL/L Chloride Level 101 98-107 MMOL/L Carbon Dioxide Level 25 21-32 MMOL/L Anion Gap 12 5-14 MMOL/L Blood Urea Nitrogen 17 7-18 MG/DL Creatinine 1.19 0.60-1.30 MG/DL Estimat Glomerular Filtration Rate 43 BUN/Creatinine Ratio 14 Glucose Level 97 70-105 MG/DL Calcium Level 10.2 H 8.5-10.1 MG/DL Corrected Calcium 10.4 H 8.5-10.1 MG/DL Magnesium Level 2.1 1.6-2.4 MG/DL Total Bilirubin 0.5 0.1-1.0 MG/DL Aspartate Amino Transf (AST/SGOT) 26 5-34 U/L Alanine Aminotransferase (ALT/SGPT) 15 0-55 U/L Alkaline Phosphatase 64 40-136 U/L Total Protein 7.6 6.4-8.2 GM/DL Albumin 3.7 3.2-4.5 GM/DL White Blood Count 8.4 4.3-11.0 10^3/uL Red Blood Count 3.72 L 3.80-5.11 10^6/uL Hemoglobin 12.0 11.5-16.0 g/dL Hematocrit 37 35-52 % Mean Corpuscular Volume 99 80-99 fL Mean Corpuscular Hemoglobin 32 25-34 pg Mean Corpuscular Hemoglobin Concent 33 32-36 g/dL Red Cell Distribution Width 14.2 10.0-14.5 % Platelet Count 372 130-400 10^3/uL Mean Platelet Volume 9.6 9.0-12.2 fL Immature Granulocyte % (Auto) 1 % Neutrophils (%) (Auto) 57 42-75 % Lymphocytes (%) (Auto) 15 12-44 % Monocytes (%) (Auto) 18 H 0-12 % Eosinophils (%) (Auto) 8 0-10 % Basophils (%) (Auto) 1 0-10 % Neutrophils # (Auto) 4.8 1.8-7.8 10^3/uL Lymphocytes # (Auto) 1.3 1.0-4.0 10^3/uL Monocytes # (Auto) 1.5 H 0.0-1.0 10^3/uL Eosinophils # (Auto) 0.7 H 0.0-0.3 10^3/uL Basophils # (Auto) 0.1 0.0-0.1 10^3/uL Immature Granulocyte # (Auto) 0.1 0.0-0.1 10^3/uL Urine Color YELLOW Urine Clarity CLEAR Urine pH 6.0 5-9 Urine Specific [place] 1.010 L 1.016-1.022 Urine Protein NEGATIVE NEGATIVE Urine Glucose (UA) NEGATIVE NEGATIVE Urine Ketones NEGATIVE NEGATIVE Urine Nitrite NEGATIVE NEGATIVE Urine Bilirubin NEGATIVE NEGATIVE Urine Urobilinogen 0.2 < = 1.0 MG/DL Urine Leukocyte Esterase NEGATIVE NEGATIVE Urine RBC (Auto) NEGATIVE NEGATIVE Urine RBC RARE /HPF Urine WBC 0-2 /HPF Urine Squamous Epithelial Cells 2-5 /HPF Urine Crystals NONE /LPF Urine Bacteria NEGATIVE /HPF Urine Casts NONE /LPF Urine Mucus NEGATIVE /LPF Urine Culture Indicated NO My Orders Orders - GUILHERME ALCOCER DO Ct Head/Face/Cervical Wo (08/05/21 09:24) Chest 1 View, Ap/Pa Only (08/05/21:24) Pelvis (08/05/21:24) Ed Iv/Invasive Line Start (08/05/21 09:32) Monitor-Rhythm Ecg Trace Only (08/05/21 09:32) Cbc With Automated Diff (08/05/21 09:32) Comprehensive Metabolic Panel (08/05/21:32) Magnesium (08/05/21 09:32) Protime With Inr (08/05/21:32) Partial Thromboplastin Time (08/05/21 09:32) Ua Culture If Indicated (08/05/21 09:32) Vital Signs/I&O 08/05/21 08/05/21 08/05/21 09:27 09:27 11:39 Temp 36.4 36.4 Pulse 71 71 63 Resp 18 18 18 B/P (MAP) 197/73 (114) 197/73 (114) 182/69 Pulse Ox 96 96 98 Blood Pressure Mean: 114 Progress Progress Note : Progress Note UNEVENTFUL ER STAY Diagnostic Imaging Comments CT HEAD/MAXILLOFACIALS/CERVICAL SPINE--PER RADIOLOGIST REPORT AT 1057 CT HEAD: Chronic lacunar infarct is seen in the right basal ganglia. Age-related cerebral volume loss and chronic microvascular changes are present. There is no focus of acute ischemia or hemorrhage. There is no midline shift or mass effect. There is no skull fracture. Paranasal sinuses and mastoids are clear. IMPRESSION: No acute intracranial abnormalities. CT FACE: There is chronic deviation of the nasal septum. The orbits are symmetric. Paranasal sinuses are clear. No air-fluid levels are seen. The mandible and zygomatic arches are intact. No orbital wall fracture is seen. Nasal bone is well aligned. IMPRESSION: No facial fracture identified. CT CERVICAL SPINE: Chronic-appearing T2 and T3 superior endplate fractures are seen. There is no cervicothoracic malalignment. Advanced degenerative disc disease and facet joint arthropathy is seen. The cervical spine is otherwise intact. No osseous lesion. Soft tissues are grossly unremarkable. IMPRESSION: 1. No traumatic malalignment or fracture of the cervical spine. 2. Likely chronic T2-T3 superior endplate compression fractures. PELVIS XRAY--PER RADIOLOGIST REPORT AT 1057 FINDINGS: Single view of the pelvis demonstrates stable calcifications adjacent to the lumbar spine. No pelvic fracture identified. Degenerative joint disease is present. There is no osseous lesion. IMPRESSION: No fracture or dislocation. CXR--PER RADIOLOGIST REPORT AT 1057 FINDINGS: Single view of the chest demonstrates chronic interstitial changes. The heart is slightly enlarged. There is no pneumothorax or effusion. Visualized osseous structures are unremarkable. IMPRESSION: No acute cardiopulmonary findings. Reviewed: Reviewed by Me Departure Impression Primary Impression: Fall Additional Impression: Facial contusion Disposition: HOME, SELF-CARE Condition: Stable Departure-Patient Inst. Decision time for Depature: 11:00 Referrals: KAROLINA JENNINGS DO (PCP/Family) Primary Care Physician Patient Instructions: Preventing Falls, Minor Head Injury, Black Eye ED Add. Discharge Instructions: TYLENOL NEEDED FOR PAIN ICE TO SORE AREAS AT 20 MINUTE INTERVALS FOLLOW UP WITH DR. JENNINGS FOR FURTHER CARE All discharge instructions reviewed with patient and/or family. Voiced understanding. GUILHERME ALCOCER DO Aug 05, 2021 11:30
[2021-08-05 11:39] VITALS: BP 182/69
== END 2021-08-05 11:39 | disposition home or self-care (01) ==
LOC: EDUNIT# 09:17 → ER 09:18
DX: S00.83XA Contusion of other part of head, initial encounter (principal); I10 Essential (primary) hypertension; F03.90 Unspecified dementia, unspecified severity, without behavioral disturbance, psychotic disturbance, mood disturbance, and anxiety; I25.10 Atherosclerotic heart disease of native coronary artery without angina pectoris; E78.00 Pure hypercholesterolemia, unspecified; Z86.73 Personal history of transient ischemic attack (TIA), and cerebral infarction without residual deficits; Z87.891 Personal history of nicotine dependence; Z79.01 Long term (current) use of anticoagulants; Z79.82 Long term (current) use of aspirin; Z79.899 Other long term (current) drug therapy; W19.XXXA Unspecified fall, initial encounter
CPT/HCPCS: 36415; 70450; 70486; 71045; 72125; 72170; 80053; 81000; 83735; 85025; 85610; 85730; 93041

== ENCOUNTER 2022-04-10 10:40 | Emergency (ER) | payer MEDICARE, OTHER ==
[~2022-04-10] VITALS: Ht 162 cm; Wt 52.0 kg
--- NOTE | 2022-04-10 11:26 | ED General ---
General Chief Complaint: General Problems/Pain Stated Complaint: UTI Nursing Triage Note: PT BROUGHT TO ED POV BY DAUGHTER FOR INCREASED WEAKNESS. PT IS CURRENTLY BEING TREATED FOR UTI. PT DOES HAD DEMENTIA HX OBTAINED FROM DAUGHTER GLORIA. DAUGHTER AT BEDSIDE. Source of Information: Patient Exam Limitations: No Limitations History of Present Illness Date Seen by Provider: Apr 10, 2022 Time Seen by Provider: 11:21 Initial Comments This is a well-appearing 86-year-old female who was brought to the ER by her daughter for concerns of increasing weakness. daughter states that she is currently being treated for urinary tract infection however they are concerned that the antibiotics are not working and her infection is worsening. She does have a history of dementia as reported by her daughter Gloria. States that she does not appear to be eating or drinking well. Her daughter is currently at bedside. Patient at this time has no complaints. States that she does feel somewhat fatigued however she is not having any pain, shortness of breath, nausea, vomiting, dysuria, hematuria. Allergies and Home Medications Allergies Coded Allergies: codeine (Verified Allergy, Unknown, 10/29/07) Patient Home Medication List Home Medication List Reviewed: Yes Aspirin (Ecotrin) 81 Mg Tablet.dr, 81 MG PO DAILY, (Reported) Entered as Reported by: MARY BRADLEY on 10/15/10 1020 Calcium Carbonate/Vitamin D3 (Calcium 600 + D Caplet) 1 Each Tablet, 1 TAB PO DAILY, (Reported) Entered as Reported by: BRETT MICHAEL on 11/27/14 1316 Cephalexin (Keflex) 500 Mg Capsule, 500 MG PO QID Prescribed by: SAMUEL SHEEHAN on 06/20/18 0938 Clopidogrel Bisulfate (Clopidogrel) 75 Mg Tablet, 75 MG PO EVERY OTHER DAY, (Reported) Entered as Reported by: BRETT MICHAEL on 11/27/14 1316 Methotrexate Sodium (Methotrexate) 2.5 Mg Tablet, 12.5 MG PO WED, (Reported) Entered as Reported by: BRETT MICHAEL on 11/27/14 1316 Metoprolol Succinate (Metoprolol Succinate) 100 Mg Tab.sr.24h, 100 MG PO BID, (Reported) Entered as Reported by: BRETT MICHAEL on 11/27/14 1316 Multivitamin (Multi Vitamin Daily) 1 Each Tablet, 1 TAB PO DAILY, (Reported) Entered as Reported by: BRETT MICHAEL on 11/27/14 131 Simvastatin (Simvastatin) 40 Mg Tablet, 40 MG PO DAILY, (Reported) Entered as Reported by: BRETT MICHAEL on 11/27/14 131 Valsartan (Diovan) 40 Mg Tab, Unknown Dose PO DAILY, (Reported) Entered as Reported by: CINDI HUMPHRIES on 06/20/18 0647 Valsartan/Hydrochlorothiazide (Valsartan-Hctz 320-12.5 Mg Tab) 1 Each Tablet, 1 TAB PO DAILY, (Reported) Entered as Reported by: BRETT MICHAEL on 11/27/14 131 Review of Systems Review of Systems Constitutional: no symptoms reported EENTM: no symptoms reported Respiratory: no symptoms reported Cardiovascular: no symptoms reported Gastrointestinal: see HPI Genitourinary: see HPI Musculoskeletal: muscle weakness Skin: no symptoms reported Psychiatric/Neurological: See HPI Hematologic/Lymphatic: No Symptoms Reported Immunological/Allergic: no symptoms reported Past Ysbelfs-Htrqwn-Frlieq Hx Patient Social History Tobacco Use?: No Substance use?: No Alcohol Use?: No Immunizations Up To Date Tetanus Booster (TDap): More than 5yrs PED Vaccines UTD: No First/Initial COVID19 Vaccinat: no Second COVID19 Vaccination Prudencio: no Third COVID19 Vaccination Date: no Seasonal Allergies Seasonal Allergies: No Past Medical History Surgery/Hospitalization HX: pmh: dementia, pressure ulcers, uti,a fib, abdominal aneurysm, sx: cardiac stents, bilat knee replacements, hyst Surgeries: Yes (hysterectomy, BILAT knee replacement/STENT) Coronary Stent, Hysterectomy, Orthopedic, Vascular Surgery Respiratory: No Cardiac: Yes (CEA NOV 2010, STENT, CARODID CLEAN OUT) Aneurysm, Coronary Artery Disease, High Cholesterol, Hypertension, Peripheral Vascular Neurological: Yes (guillain-graves syndrome ) TIA Reproductive Disorders: No Female Reproductive Disorders: Denies Sexually Transmitted Disease: No HIV/AIDS: No Genitourinary: No UTI-Chronic Gastrointestinal: Yes Diverticulosis Musculoskeletal: Yes (SYATICA) Arthritis, Rheumatoid Arthritis Endocrine: No Cataract Loss of Vision: Denies Hearing Impairment: Hard of Hearing Cancer: No Psychosocial: No Integumentary: No Blood Disorders: No Adverse Reaction/Blood Tranf: No Family Medical History Aortic aneurysm 19 FATHER Physical Exam Vital Signs Vital Signs - First Documented 04/10/22 10:55 Temp 36.5 Pulse 73 Resp 20 B/P (MAP) 181/87 (118) Pulse Ox 99 O2 Delivery Room Air Capillary Refill : Less Than 3 Seconds Height, Weight, BMI Height: 5'4" Weight: 155lbs. 8.0oz. 70.419209tr; 19.00 BMI Method:Stated General Appearance: No Apparent Distress, WD/WN Eyes: Bilateral Eye Normal Inspection, Bilateral Eye PERRL, Bilateral Eye EOMI HEENT: PERRL/EOMI, Normal ENT Inspection, Pharynx Normal, Moist Mucous Membranes Neck: Full Range of Motion, Normal Inspection, Non Tender, Supple Respiratory: Lungs Clear, Normal Breath Sounds, No Accessory Muscle Use, No Respiratory Distress Cardiovascular: Regular Rate, Rhythm, No Gallop Gastrointestinal: Normal Bowel Sounds, Non Tender, Soft Extremity: Normal Capillary Refill, Normal Inspection, Normal Range of Motion Neurologic/Psychiatric: Alert, Oriented x3, No Motor/Sensory Deficits, Normal Mood/Affect Skin: Normal Color, Warm/Dry Progress/Results/Core Measures Suspected Sepsis SIRS Temperature: Pulse: 73 Respiratory Rate: 20 Laboratory Tests 04/10/22 10:46: White Blood Count 13.1H Blood Pressure 181 /87 Mean: 118 Laboratory Tests 04/10/22 10:46: Creatinine 1.00, Platelet Count 338, Total Bilirubin 0.5 Results/Orders Lab Results Laboratory Tests Test 04/10/22 10:46 04/10/22 11:38 Range/Units White Blood Count 13.1 H 4.3-11.0 10^3/uL Red Blood Count 4.24 3.80-5.11 10^6/uL Hemoglobin 13.1 11.5-16.0 g/dL Hematocrit 40 35-52 % Mean Corpuscular Volume 95 80-99 fL Mean Corpuscular Hemoglobin 31 25-34 pg Mean Corpuscular Hemoglobin Concent 33 32-36 g/dL Red Cell Distribution Width 14.9 H 10.0-14.5 % Platelet Count 338 130-400 10^3/uL Mean Platelet Volume 9.7 9.0-12.2 fL Immature Granulocyte % (Auto) 1 % Neutrophils (%) (Auto) 69 42-75 % Lymphocytes (%) (Auto) 11 L 12-44 % Monocytes (%) (Auto) 9 0-12 % Eosinophils (%) (Auto) 10 0-10 % Basophils (%) (Auto) 1 0-10 % Neutrophils # (Auto) 9.1 H 1.8-7.8 10^3/uL Lymphocytes # (Auto) 1.5 1.0-4.0 10^3/uL Monocytes # (Auto) 1.2 H 0.0-1.0 10^3/uL Eosinophils # (Auto) 1.3 H 0.0-0.3 10^3/uL Basophils # (Auto) 0.1 0.0-0.1 10^3/uL Immature Granulocyte # (Auto) 0.1 0.0-0.1 10^3/uL Sodium Level 141 135-145 MMOL/L Potassium Level 3.9 3.6-5.0 MMOL/L Chloride Level 104 98-107 MMOL/L Carbon Dioxide Level 25 21-32 MMOL/L Anion Gap 12 5-14 MMOL/L Blood Urea Nitrogen 19 H 7-18 MG/DL Creatinine 1.00 0.60-1.30 MG/DL Estimat Glomerular Filtration Rate 54 BUN/Creatinine Ratio 19 Glucose Level 93 70-105 MG/DL Calcium Level 9.9 8.5-10.1 MG/DL Corrected Calcium 10.1 8.5-10.1 MG/DL Total Bilirubin 0.5 0.1-1.0 MG/DL Aspartate Amino Transf (AST/SGOT) 22 5-34 U/L Alanine Aminotransferase (ALT/SGPT) 12 0-55 U/L Alkaline Phosphatase 90 40-136 U/L Total Protein 6.8 6.4-8.2 GM/DL Albumin 3.7 3.2-4.5 GM/DL Urine Color YELLOW Urine Clarity CLEAR Urine pH 6.0 5-9 Urine Specific [place] 1.025 H 1.016-1.022 Urine Protein NEGATIVE NEGATIVE Urine Glucose (UA) NEGATIVE NEGATIVE Urine Ketones NEGATIVE NEGATIVE Urine Nitrite NEGATIVE NEGATIVE Urine Bilirubin NEGATIVE NEGATIVE Urine Urobilinogen 0.2 < = 1.0 MG/DL Urine Leukocyte Esterase NEGATIVE NEGATIVE Urine RBC (Auto) NEGATIVE NEGATIVE Urine RBC NONE /HPF Urine WBC 2-5 /HPF Urine Squamous Epithelial Cells 5-10 /HPF Urine Crystals NONE /LPF Urine Bacteria NEGATIVE /HPF Urine Casts NONE /LPF Urine Mucus NEGATIVE /LPF Urine Culture Indicated NO My Orders Orders - BEBETO HUNTER [employer] ANALYST Ua Culture If Indicated (04/10/22 11:22) Cbc With Automated Diff (04/10/22 11:22) Comprehensive Metabolic Panel (04/10/22 11:22) Ed Iv/Invasive Line Start (04/10/22 11:49) Ns Iv 1000 Ml (Sodium Chloride 0.9%) (04/10/22 12:00) Vital Signs/I&O 04/10/22 04/10/22 10:55 13:40 Temp 36.5 36.5 Pulse 73 92 Resp 20 16 B/P (MAP) 181/87 (118) 192/102 Pulse Ox 99 96 O2 Delivery Room Air Room Air Capillary Refill : Less Than 3 Seconds Blood Pressure Mean: 118 Progress Note : Progress Note Patient examined in no acute distress. daughter states that she has been having increasing weakness over the past several months and it is becoming increasingly difficult for her to remain at home independently. However there is no guardian ship in place but they would like to see about possible admission due to her increasing weakness. Patient is adamant that she will not stay in the hospital and demands to go home. patient has been receiving a liter of saline and states that she will remain long enough to receive her fluids but then she "wants to go home". Discussed with daughter at this time the patient is her own person and if she elects to leave she has a ride to do so. They are more than welcome to bring her back to the emergency department if she has any new, concerning, worsening symptoms. Daughter verbalized understanding. Discharge plan of care reviewed and they are agreeable with plan Departure Impression Primary Impression: Dehydration Disposition: 01 HOME, SELF-CARE Condition: Improved Departure-Patient Inst. Decision time for Depature: 12:31 Referrals: KAROLINA JENNINGS DO (PCP/Family) Primary Care Physician Patient Instructions: Dehydration, Adult (DC) Add. Discharge Instructions: Plan: 1. Drink plenty of fluids to stay hydrated. 2. Follow up with your doctor for any persistent symptoms. 3. Return for any new, concerning, or worsening symptoms. All discharge instructions reviewed with patient and/or family. Voiced understanding. BEBETO H[employer] ANALYST Apr 10, 2022 11:26
[2022-04-10 11:33] LABS: BASOPHILS # (AUTO) 0.1 10^3/uL (0.0-0.1); BASOPHILS % (AUTO) 1 % (0-10); EOSINOPHILS # (AUTO) 1.3 10^3/uL (0.0-0.3); EOSINOPHILS % (AUTO) 10 % (0-10); HEMATOCRIT 40 % (35-52); HEMOGLOBIN 13.1 g/dL (11.5-16.0); LYMPHOCYTES # (AUTO) 1.5 10^3/uL (1.0-4.0); LYMPHOCYTES % (AUTO) 11 % (12-44); MEAN CORPUSCULAR HEMOGLOBIN 31 pg (25-34); MEAN CORPUSCULAR HGB CONC 33 g/dL (32-36); MEAN CORPUSCULAR VOLUME 95 fL (80-99); MEAN PLATELET VOLUME 9.7 fL (9.0-12.2); MONOCYTES # (AUTO) 1.2 10^3/uL (0.0-1.0); MONOCYTES % (AUTO) 9 % (0-12); NEUTROPHILS # (AUTO) 9.1 10^3/uL (1.8-7.8); NEUTROPHILS % (AUTO) 69 % (42-75); PLATELET COUNT 338 10^3/uL (130-400); WHITE BLOOD COUNT 13.1 10^3/uL (4.3-11.0)
[2022-04-10 11:37] LABS: ALBUMIN 3.7 GM/DL (3.2-4.5); POTASSIUM 3.9 MMOL/L (3.6-5.0)
[2022-04-10 11:38] LABS: CALCIUM 9.9 MG/DL (8.5-10.1)
[2022-04-10 11:39] LABS: TOTAL PROTEIN 6.8 GM/DL (6.4-8.2)
[2022-04-10 11:41] LABS: BILIRUBIN,TOTAL 0.5 MG/DL (0.1-1.0)
[2022-04-10 11:45] LABS: BILIRUBIN,URINE NEGATIVE (NEGATIVE); CLARITY,URINE CLEAR; COLOR,URINE YELLOW; GLUCOSE, URINE (UA) NEGATIVE (NEGATIVE); KETONES,URINE NEGATIVE (NEGATIVE); LEUKOCYTE ESTERASE ,URINE NEGATIVE (NEGATIVE); NITRITE,URINE NEGATIVE (NEGATIVE); PROTEIN,URINE NEGATIVE (NEGATIVE)
[2022-04-10 11:54] LABS: BACTERIA,URINE NEGATIVE /HPF
[2022-04-10] MEDS ORDERED: NS IV 1000 ML 1,000 ML IV SCH (12:00)
[2022-04-10 13:40] VITALS: BP 192/102
== END 2022-04-10 13:40 | disposition home or self-care (01) ==
LOC: EDUNIT# 10:40 → ER 10:41
DX: E86.0 Dehydration (principal); Z28.310 Unvaccinated for COVID-19
CPT/HCPCS: 36415; 80053; 81000; 85025

== ENCOUNTER 2022-04-21 10:26 | Emergency (ER) | payer MEDICARE, OTHER ==
[~2022-04-21] VITALS: Ht 162.6 cm; Wt 54.4 kg
[2022-04-21 10:55] LABS: BASOPHILS # (AUTO) 0.1 10^3/uL (0.0-0.1); BASOPHILS % (AUTO) 1 % (0-10); EOSINOPHILS # (AUTO) 0.3 10^3/uL (0.0-0.3); EOSINOPHILS % (AUTO) 3 % (0-10); HEMATOCRIT 44 % (35-52); HEMOGLOBIN 14.5 g/dL (11.5-16.0); LYMPHOCYTES # (AUTO) 1.2 10^3/uL (1.0-4.0); LYMPHOCYTES % (AUTO) 11 % (12-44); MEAN CORPUSCULAR HEMOGLOBIN 31 pg (25-34); MEAN CORPUSCULAR HGB CONC 33 g/dL (32-36); MEAN CORPUSCULAR VOLUME 93 fL (80-99); MEAN PLATELET VOLUME 9.5 fL (9.0-12.2); MONOCYTES # (AUTO) 1.1 10^3/uL (0.0-1.0); MONOCYTES % (AUTO) 10 % (0-12); NEUTROPHILS # (AUTO) 8.1 10^3/uL (1.8-7.8); NEUTROPHILS % (AUTO) 75 % (42-75); PLATELET COUNT 371 10^3/uL (130-400); WHITE BLOOD COUNT 10.8 10^3/uL (4.3-11.0)
[2022-04-21 11:13] LABS: ALBUMIN 4.1 GM/DL (3.2-4.5)
[2022-04-21 11:14] LABS: POTASSIUM 3.4 MMOL/L (3.6-5.0)
[2022-04-21 11:15] LABS: CALCIUM 10.3 MG/DL (8.5-10.1)
--- NOTE | 2022-04-21 11:15 | ED General ---
General Stated Complaint: NECK STIFF Source of Information: Patient, EMS Exam Limitations: No Limitations (BRITTNEE ACEVEDO APRN) History of Present Illness Date Seen by Provider: Apr 21, 2022 Time Seen by Provider: 10:40 Initial Comments To ER by EMS from home with reports of neck stiffness after a fall about 3 days ago. She has fallen quite a bit recently and has general weakness. She is demented lives at home with her though at 89 years old he is not able to take care of her very well. Daughter states that she gets very restless at night, wanders. . Primary Care is [facility], family has been trying to find a facility to get the patient into more residential Timing/Duration: 2-3 Days Severity: Moderate Associated Systoms: Denies Symptoms (BRITTNEE ACEVEDO APRN) Allergies and Home Medications Allergies Coded Allergies: codeine (Verified Allergy, Unknown, 10/29/07) Patient Home Medication List Home Medication List Reviewed: Yes (BRITTNEE ACEVEDO APRN) Aspirin (Ecotrin) 81 Mg Tablet.dr, 81 MG PO DAILY, (Reported) Entered as Reported by: MARY BRADLEY on 10/15/10 1020 Calcium Carbonate/Vitamin D3 (Calcium 600 + D Caplet) 1 Each Tablet, 1 TAB PO DAILY, (Reported) Entered as Reported by: BRETT MICHAEL on 11/27/14 1316 Cephalexin (Keflex) 500 Mg Capsule, 500 MG PO QID Prescribed by: SAMUEL SHEEHAN on 06/20/18 0938 Clopidogrel Bisulfate (Clopidogrel) 75 Mg Tablet, 75 MG PO EVERY OTHER DAY, (Reported) Entered as Reported by: BRETT MICHAEL on 11/27/14 131 Methotrexate Sodium (Methotrexate) 2.5 Mg Tablet, 12.5 MG PO WED, (Reported) Entered as Reported by: BRETT MICHAEL on 11/27/14 1316 Metoprolol Succinate (Metoprolol Succinate) 100 Mg Tab.sr.24h, 100 MG PO BID, (Reported) Entered as Reported by: BRETT MICHAEL on 11/27/14 1316 Multivitamin (Multi Vitamin Daily) 1 Each Tablet, 1 TAB PO DAILY, (Reported) Entered as Reported by: BRETT MICHAEL on 11/27/14 1316 Simvastatin (Simvastatin) 40 Mg Tablet, 40 MG PO DAILY, (Reported) Entered as Reported by: BRETT MICHAEL on 11/27/14 1316 Valsartan (Diovan) 40 Mg Tab, Unknown Dose PO DAILY, (Reported) Entered as Reported by: CINDI HUMPHRIES on 06/20/18 0647 Valsartan/Hydrochlorothiazide (Valsartan-Hctz 320-12.5 Mg Tab) 1 Each Tablet, 1 TAB PO DAILY, (Reported) Entered as Reported by: BRETT MICHAEL on 11/27/14 1316 Review of Systems Review of Systems Constitutional: see HPI EENTM: see HPI Respiratory: no symptoms reported Cardiovascular: no symptoms reported Genitourinary: no symptoms reported Musculoskeletal: see HPI, neck pain Skin: no symptoms reported Psychiatric/Neurological: No Symptoms Reported Hematologic/Lymphatic: No Symptoms Reported (Doing) (BRITTNEE ACEVEDO APRN) Past Xnoshao-Pbclhz-Owpnru Hx Immunizations Up To Date Tetanus Booster (TDap): More than 5yrs PED Vaccines UTD: No First/Initial COVID19 Vaccinat: no Second COVID19 Vaccination Prudencio: no Third COVID19 Vaccination Date: no (BRITTNEE ACEVEDO APRN) Seasonal Allergies Seasonal Allergies: No (BRITTNEE ACEVEDO APRN) Past Medical History Surgery/Hospitalization HX: pmh: dementia, pressure ulcers, uti,a fib, abdominal aneurysm, sx: cardiac stents, bilat knee replacements, hyst Surgeries: Yes (hysterectomy, BILAT knee replacement/STENT) Coronary Stent, Hysterectomy, Orthopedic, Vascular Surgery Respiratory: No Cardiac: Yes (CEA NOV 2010, STENT, CARODID CLEAN OUT) Aneurysm, Coronary Artery Disease, High Cholesterol, Hypertension, Peripheral Vascular Neurological: Yes (guillain-graves syndrome ) TIA Reproductive Disorders: No Female Reproductive Disorders: Denies Sexually Transmitted Disease: No HIV/AIDS: No Genitourinary: No UTI-Chronic Gastrointestinal: Yes Diverticulosis Musculoskeletal: Yes (SYATICA) Arthritis, Rheumatoid Arthritis Endocrine: No Cataract Loss of Vision: Denies Hearing Impairment: Hard of Hearing Cancer: No Psychosocial: No Integumentary: No Blood Disorders: No Adverse Reaction/Blood Tranf: No (BRITTNEE ACEVEDO APRN) Family Medical History Aortic aneurysm 19 FATHER Physical Exam Vital Signs Vital Signs - First Documented 04/21/22 04/21/22 10:35 17:12 Temp 36.2 Pulse 83 Resp 17 B/P (MAP) 138/80 (99) Pulse Ox 97 O2 Delivery Room Air (SAMUEL MORE MD) Vital Signs Capillary Refill : (BRITTNEE ACEVEDO APRN) Height, Weight, BMI Height: 5'4" Weight: 155lbs. 8.0oz. [id number]; 19.00 BMI Method:Stated General Appearance: No Apparent Distress, WD/WN Eyes: Bilateral Eye Normal Inspection, Bilateral Eye PERRL, Bilateral Eye EOMI HEENT: PERRL/EOMI, TMs Normal Neck: Full Range of Motion, Normal Inspection Respiratory: No Accessory Muscle Use, No Respiratory Distress (I do still) Cardiovascular: Regular Rate, Rhythm, Normal Peripheral Pulses Gastrointestinal: Normal Bowel Sounds, Non Tender, Soft Extremity: Normal Capillary Refill, Normal Inspection, Other (Ecchymoses anterior lower legs bilaterally) Neurologic/Psychiatric: Alert, Other (Very pleasant. She does not know the year nor does she know where she is at currently.) Skin: Normal Color, Warm/Dry (BRITTNEE ACEVEDO APRN) Progress/Results/Core Measures Suspected Sepsis SIRS Temperature: Pulse: Respiratory Rate: Laboratory Tests 04/21/22 10:44: White Blood Count 10.8 Blood Pressure / Mean: Laboratory Tests 04/21/22 10:44: Creatinine 1.27, Platelet Count 371, Total Bilirubin 0.8 (BRITTNEE ACEVEDO APRN) Results/Orders Lab Results Laboratory Tests Test 04/21/22 10:44 04/21/22 11:58 Range/Units White Blood Count 10.8 4.3-11.0 10^3/uL Red Blood Count 4.69 3.80-5.11 10^6/uL Hemoglobin 14.5 11.5-16.0 g/dL Hematocrit 44 35-52 % Mean Corpuscular Volume 93 80-99 fL Mean Corpuscular Hemoglobin 31 25-34 pg Mean Corpuscular Hemoglobin Concent 33 32-36 g/dL Red Cell Distribution Width 14.5 10.0-14.5 % Platelet Count 371 130-400 10^3/uL Mean Platelet Volume 9.5 9.0-12.2 fL Immature Granulocyte % (Auto) 1 % Neutrophils (%) (Auto) 75 42-75 % Lymphocytes (%) (Auto) 11 L 12-44 % Monocytes (%) (Auto) 10 0-12 % Eosinophils (%) (Auto) 3 0-10 % Basophils (%) (Auto) 1 0-10 % Neutrophils # (Auto) 8.1 H 1.8-7.8 10^3/uL Lymphocytes # (Auto) 1.2 1.0-4.0 10^3/uL Monocytes # (Auto) 1.1 H 0.0-1.0 10^3/uL Eosinophils # (Auto) 0.3 0.0-0.3 10^3/uL Basophils # (Auto) 0.1 0.0-0.1 10^3/uL Immature Granulocyte # (Auto) 0.1 0.0-0.1 10^3/uL Sodium Level 137 135-145 MMOL/L Potassium Level 3.4 L 3.6-5.0 MMOL/L Chloride Level 99 98-107 MMOL/L Carbon Dioxide Level 27 21-32 MMOL/L Anion Gap 11 5-14 MMOL/L Blood Urea Nitrogen 30 H 7-18 MG/DL Creatinine 1.27 0.60-1.30 MG/DL Estimat Glomerular Filtration Rate 41 BUN/Creatinine Ratio 24 Glucose Level 105 70-105 MG/DL Calcium Level 10.3 H 8.5-10.1 MG/DL Corrected Calcium 10.2 H 8.5-10.1 MG/DL Total Bilirubin 0.8 0.1-1.0 MG/DL Aspartate Amino Transf (AST/SGOT) 38 H 5-34 U/L Alanine Aminotransferase (ALT/SGPT) 20 0-55 U/L Alkaline Phosphatase 97 40-136 U/L Total Protein 7.9 6.4-8.2 GM/DL Albumin 4.1 3.2-4.5 GM/DL Urine Color YELLOW Urine Clarity SL CLOUDY Urine pH 6.0 5-9 Urine Specific Lisco >=1.030 1.016-1.022 Urine Protein 1+ H NEGATIVE Urine Glucose (UA) NEGATIVE NEGATIVE Urine Ketones TRACE H NEGATIVE Urine Nitrite NEGATIVE NEGATIVE Urine Bilirubin NEGATIVE NEGATIVE Urine Urobilinogen 1.0 < = 1.0 MG/DL Urine Leukocyte Esterase TRACE H NEGATIVE Urine RBC (Auto) NEGATIVE NEGATIVE Urine RBC NONE /HPF Urine WBC 25-50 H /HPF Urine Squamous Epithelial Cells 5-10 /HPF Urine Crystals NONE /LPF Urine Bacteria FEW H /HPF Urine Casts NONE /LPF Urine Mucus SMALL H /LPF Urine Culture Indicated YES (SAMUEL MORE MD) Micro Results Microbiology 04/21/22 Urine Culture - Final, Complete NO GROWTH (SAMUEL MORE MD) Vital Signs/I&O 04/21/22 04/21/22 10:35 17:12 Temp 36.2 35.9 Pulse 83 61 Resp 17 17 B/P (MAP) 138/80 (99) 147/83 Pulse Ox 97 O2 Delivery Room Air Room Air (SAMUEL MORE MD) Vital Signs/I&O Capillary Refill : (BRITTNEE ACEVEDO APRN) Departure Communication (Admissions) 1307-spoke with Dr. Dickson, we definitely have an indication for admission. Patient is just generally weak. Family would like to get her into a residential. I spoke with [facility] [place] they do not have any beds. [facility] and [facility] states that they have sick staffing for residents out with COVID. The patient has been vaccinated for COVID due to her history of Guillain-Graves following vaccines as a kid. [facility] does not have any beds today but they have a couple of discharges over the weekend and anticipate some beds open next week. [facility] does have a bed today so I have faxed them the requested information. [facility] cannot accept the patient as they do not have anyone to review her information for financials. I considered the possibility of admission to [facility] [place] but patient does not have a DURABLE POWER OF SPRING FITTER HELPER. Because she is demented this would require going through an associate attorney which certainly will not be happening at [facility] on a Sunday afternoon. NAME: FORREST MORA [facility] REC#: [id number] PT STATUS: REG ER : 1935 PHYSICIAN: BRITTNEE ACEVEDO APRN ADMIT DATE: 04/21/22/ER Draft Date of Exam:04/21/22 CT HEAD/CERVICAL SPINE WO PROCEDURE: CT head and CT cervical spine without contrast. TECHNIQUE: Multiple contiguous axial images were obtained through the brain and cervical spine without the use of intravenous contrast. Sagittal and coronal reformations through the cervical spine were then performed. Auto Exposure Controls were utilized during the CT exam to meet ALARA standards for radiation dose reduction. INDICATION: Fall. Correlation is made with prior CT from 08/05/2021. 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 This is similar to prior exam. Ventricular size and sulcal pattern are prominent consistent with cerebral volume loss. There is no sulcal effacement or midline shift. No acute intra-axial or extra-axial hemorrhage is detected. Cisterns are patent. Visualized paranasal sinuses are clear. IMPRESSION: Stable chronic changes. No acute intracranial process is detected. CT cervical spine: Curvature and alignment of the cervical spine is normal. There is multilevel degenerative disc disease with variable disc space narrowing and marginal spurring, greatest at C4-C5, C5-C6 and C6-C7 levels. No fractures are identified. Prevertebral tissues are within normal limits. Odontoid is intact. IMPRESSION: Cervical spondylosis. No acute bony abnormality is detected. Dictated on workstation # [id number] Dict: 04/21/22 1121 Trans: 04/21/22 1130 [facility] [id number] Interpreted by: MARYCHUY WILDER MD Electronically signed by: (BRITTNEE ACEVEDO APRN) Impression Primary Impression: Generalized weakness Additional Impression: Urinary tract infection Disposition: HOME, SELF-CARE Condition: Stable Departure-Patient Inst. Referrals: KAROLINA JENNINGS DO (PCP/Family) Primary Care Physician ATTENDING PHYSICIAN NOTE: I was physically present as attending physician in the emergency department duri ng the care of this patient, but I was not directly involved in the decision making or delivery of care for this patient. (SAMUEL MORE MD) Copy Copies To 1: KAROLINA JENNINGS PETER J APRN Apr 21, 2022 11:15 SAMUEL MORE MD Apr 24, 2022 19:38
[2022-04-21 11:16] LABS: TOTAL PROTEIN 7.9 GM/DL (6.4-8.2)
[2022-04-21 11:18] LABS: BILIRUBIN,TOTAL 0.8 MG/DL (0.1-1.0)
[2022-04-21 11:20] LABS: CREATININE SERUM 1.27 MG/DL (0.60-1.30)
--- NOTE | 2022-04-21 11:28 | Diagnostic Imaging Report ---
INDICATION: Pain post fall. TECHNIQUE: AP pelvis. CORRELATION STUDY: 08/05/2021. FINDINGS: Large amount of overlying bowel gas and stool obscure detail. The pelvis appears to be intact. No acute displaced pelvic fracture with the pectineal lines and obturator rings maintained. SI joints are grossly unremarkable, and there is no diastasis of the pubic symphysis. Mild degenerative changes of both hips. There is an abnormal somewhat oblong-shaped thin rimmed calcified mass in the left lower pelvis. Additional vascular calcification is noted. IMPRESSION: 1. Negative for acute displaced pelvic fracture. 2. Calcification in the left lower quadrant corresponds to a known infrarenal abdominal aortic aneurysm. It may be slightly more prominent from prior imaging. Dictated by: Dictated on workstation # [id number]
--- NOTE | 2022-04-21 11:30 | Diagnostic Imaging Report ---
PROCEDURE: CT head and CT cervical spine without contrast. TECHNIQUE: Multiple contiguous axial images were obtained through the brain and cervical spine without the use of intravenous contrast. Sagittal and coronal reformations through the cervical spine were then performed. Auto Exposure Controls were utilized during the CT exam to meet ALARA standards for radiation dose reduction. INDICATION: Fall. Correlation is made with prior CT from 08/05/2021. 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 This is similar to prior exam. Ventricular size and sulcal pattern are prominent consistent with cerebral volume loss. There is no sulcal effacement or midline shift. No acute intra-axial or extra-axial hemorrhage is detected. Cisterns are patent. Visualized paranasal sinuses are clear. IMPRESSION: Stable chronic changes. No acute intracranial process is detected. CT cervical spine: Curvature and alignment of the cervical spine is normal. There is multilevel degenerative disc disease with variable disc space narrowing and marginal spurring, greatest at C4-C5, C5-C6 and C6-C7 levels. No fractures are identified. Prevertebral tissues are within normal limits. Odontoid is intact. IMPRESSION: Cervical spondylosis. No acute bony abnormality is detected. Dictated by: Dictated on workstation # [id number]
[2022-04-21 12:08] LABS: BILIRUBIN,URINE NEGATIVE (NEGATIVE); CLARITY,URINE SL CLOUDY; COLOR,URINE YELLOW; GLUCOSE, URINE (UA) NEGATIVE (NEGATIVE); KETONES,URINE TRACE (NEGATIVE); LEUKOCYTE ESTERASE ,URINE TRACE (NEGATIVE); NITRITE,URINE NEGATIVE (NEGATIVE); PROTEIN,URINE 1+ (NEGATIVE)
[2022-04-21 12:17] LABS: BACTERIA,URINE FEW /HPF; WBC,URINE 25-50 /HPF
[2022-04-21] MEDS ORDERED: cefTRIAXone 1 GM PRE-MIX 50 ML IV ONE (13:15)
[2022-04-21 17:12] VITALS: BP 147/83
== END 2022-04-21 17:12 | disposition short-term general hospital (02) ==
LOC: EDUNIT# 10:26 → ER 10:31
DX: R53.1 Weakness (principal); N39.0 Urinary tract infection, site not specified
CPT/HCPCS: 36415; 51701; 70450; 72125; 72170; 80053; 81000; 85025; 87088